=== PATIENT | male | born 1990 | race African-American/Black ===

== ENCOUNTER 2023-06-16 09:24 | Emergency (ER) | payer MEDICAID ==
[~2023-06-16] VITALS: Ht 180.3 cm; Wt 82.0 kg
[2023-06-16 09:43] VITALS: BP 117/64; PULSE 66; RESP 18; TEMP 98.2; O2SAT 98
[2023-06-16] MEDS ORDERED: ACETAMINOPHEN 325MG TABLET PO ONE ×2 (10:00)
[2023-06-16] MEDS ORDERED: KETOROLAC 60MG/2ML VIAL IM ONE (10:00)
[2023-06-16] MEDS ORDERED: IBUP-2030 MT (11:03)
[2023-06-16] MEDS ORDERED: KETOROLAC 60MG/2ML VIAL IM NR (11:15)
[2023-06-16] MEDS ORDERED: ACETAMINOPHEN 325MG TABLET PO NR (11:15)
== END 2023-06-16 11:21 | disposition home or self-care (01) ==
LOC: ER 09:24
DX: G89.29 Other chronic pain (principal); M54.40 Lumbago with sciatica, unspecified side; Z98.890 Other specified postprocedural states
CPT/HCPCS: 72100; 99283